=== PATIENT | female | born 1940 | race Asian ===

== ENCOUNTER 2018-12-30 19:18 | Emergency (ER) | payer OTHER ==
[~2018-12-30] VITALS: Ht 149.9 cm; Wt 55.0 kg
[~2018-12-30 19:18] MED LIST: AMLO10TA80 PO; ASPI-986 PO; BIMA2.5D4 EACHEYE; BRIM15DR2 EACHEYE; GLIP5TAB12 PO; LIP40 PO; PRAV40TA58 MT; SITA50TA3 PO; TIMO1DRO2 EACHEYE
[2018-12-30] MEDS ORDERED: METOCLOPRAMIDE HCL 10MG/2ML VIAL IV ONE (21:00)
[2018-12-30] MEDS ORDERED: SODIUM CHLORIDE 0.9% 500 ML IV ONE (21:00)
[2018-12-30 21:41] LABS: BASOPHILS % 0.7 % (0.0-2.0); EOSINOPHILS % 1.3 % (0.0-5.0); HEMATOCRIT. 39.6 % (36.0-48.0); HEMOGLOBIN. 13.7 g/dL (12.0-16.0); LYMPHOCYTES % 14.4 % (20.0-50.0); MEAN CORPUSCULAR HEMOGLOBIN 32.2 pg (28.0-32.0); MEAN CORPUSCULAR VOLUME 93.4 fL (81.0-99.0); MEAN PLATELET VOLUME 8.4 fl (7.4-10.4); MONOCYTES % 7.3 % (2.0-8.0); NEUTROPHILS % 76.3 % (40.0-76.0); PLATELET 251 x1000/uL (130-400); RED BLOOD CELL COUNT 4.24 mill/uL (4.2-5.4); RED CELL DISTRIBUTION WIDTH 13.4 % (11.6-14.6)
[2018-12-30 21:43] LABS: CHLORIDE 107 mEq/L (98-107)
[2018-12-30 21:45] LABS: INR 0.9; PROTHROMBIN TIME 9.3 sec (9.6-11.0)
[2018-12-30 23:17] VITALS: BP 188/71
== END 2018-12-30 23:26 | disposition home or self-care (01) ==
LOC: ER 19:18
DX: I12.9 Hypertensive chronic kidney disease with stage 1 through stage 4 chronic kidney disease, or unspecified chronic kidney disease (principal); E09.22 Drug or chemical induced diabetes mellitus with diabetic chronic kidney disease; N18.9 Chronic kidney disease, unspecified; N17.9 Acute kidney failure, unspecified; R51 Headache; R11.2 Nausea with vomiting, unspecified; R07.89 Other chest pain; E87.5 Hyperkalemia; E78.5 Hyperlipidemia, unspecified; Z90.49 Acquired absence of other specified parts of digestive tract; Z79.82 Long term (current) use of aspirin; Z79.899 Other long term (current) drug therapy
CPT/HCPCS: 36415; 70450; 71045; 80053; 83880; 84484; 85025; 85610; 93005; 96361; 96374; 99284; J2765; J7040; Z7610